=== PATIENT | female | born 1990 | race Caucasian/White ===

== ENCOUNTER 2019-05-27 07:45 | Day surgery (SDC) | payer BC ==
[~2019-05-27 07:45] MED LIST: Lactated Ringers 1,000 ML IV SCH; Sodium Chloride 0.9% 10 ML SDV IV PRN; Sodium Chloride 0.9% 10 ML Syringe FLUSH PRN; Sodium Chloride 0.9% 2.5 ML Syringe FLUSH PRN
[2019-05-27] MEDS ORDERED: ceFAZolin 2 GM in Premix Bag 1 BAG IV ONE (08:00)
[2019-05-27] MEDS ORDERED: Fluorescein 5 ML Vial ONE (08:18)
[2019-05-27] MEDS ORDERED: Bupivacaine 0.25% 10 ML SDV ONE (08:18)
[2019-05-27 08:45] LABS: BLOOD UREA NITROGEN,BUN 16 mg/dL (7.0-18.0); CARBON DIOXIDE,CO2 26.1 mmol/L (21.0-32.0); CHLORIDE,CL 106 mmol/L (98-107); GLUCOSE RANDOM 97 mg/dL (74-106); SODIUM,NA 142 mmol/L (136-145)
[2019-05-27] MEDS ORDERED: Scopolamine 1.5 MG Transdermal Patch TRDERM PRN (09:13)
--- NOTE | 2019-05-27 09:18 | PCM.PREANE ---
Preanesthetic Assessment - Anesthesia/Transfusion/Family Hx Anesthesia History: Prior Anesthesia Reaction (woke-up during surgery) Family History of Anesthesia Reaction: No Transfusion History: No Prior Transfusion(s) Intubation History: Unknown - Review of Systems General: No Symptoms Pulmonary: No Symptoms Cardiovascular: No Symptoms Gastrointestinal: No Symptoms Neurological: No Symptoms Other: Reports: None - Physical Assessment NPO Status Date: 05/26/19 NPO Status Time: 11:59 Vital Signs: Last Vital Signs Temp 35.9 C 05/27/19 07:55 Pulse 83 05/27/19 07:55 Resp 18 05/27/19 07:55 BP 134/84 05/27/19 07:55 Pulse Ox 99 05/27/19 07:55 Height: 5 ft 7 in Weight: 63.503 kg ASA Class: 2 Mental Status: Alert & Oriented x3 Airway Class: Mallampati = 1 Dentition: Reports: Normal Dentition, Broken Tooth/Teeth (2 small chips on upper front incisors) Thyro-Mental Finger Breadths: 3 Mouth Opening Finger Breadths: 3 ROM/Head Extension: Full Lungs: Clear to Auscultation, Normal Respiratory Effort Cardiovascular: Regular Rate, Regular Rhythm - Lab Values: Laboratory Last Values WBC 6.55 K/uL (4.0-11.0) 05/27/19 08:15 RBC 4.73 M/uL (4.30-5.90) 05/27/19 08:15 Hgb 14.6 g/dL (12.0-16.0) 05/27/19 08:15 Hct 44.5 % (36.0-46.0) 05/27/19 08:15 MCV 94.1 fL (80.0-98.0) 05/27/19 08:15 MCH 30.9 pg (27.0-32.0) 05/27/19 08:15 MCHC 32.8 g/dL (31.0-37.0) 05/27/19 08:15 RDW Std Deviation 45.8 fl (28.0-62.0) 05/27/19 08:15 RDW Coeff of Betty 13 % (11.0-15.0) 05/27/19 08:15 Plt Count 296 K/uL (150-400) 05/27/19 08:15 MPV 9.90 fL (7.40-12.00) 05/27/19 08:15 Nucleated RBC % 0.0 /100WBC 05/27/19 08:15 Nucleated RBCs # 0 K/uL 05/27/19 08:15 Sodium 142 mmol/L (136-145) 05/27/19 08:15 Potassium 4.0 mmol/L (3.5-5.1) 05/27/19 08:15 Chloride 106 mmol/L (98-107) 05/27/19 08:15 Carbon Dioxide 26.1 mmol/L (21.0-32.0) 05/27/19 08:15 BUN 16 mg/dL (7.0-18.0) 05/27/19 08:15 Creatinine 0.9 mg/dL (0.6-1.0) 05/27/19 08:15 Est Cr Clr Drug Dosing 89.69 mL/min 05/27/19 08:15 Estimated GFR (MDRD) > 60.0 ml/min 05/27/19 08:15 Glucose 97 mg/dL (74-106) 05/27/19 08:15 Calcium 8.5 mg/dL (8.5-10.1) 05/27/19 08:15 HCG, Qual NEGATIVE (NEG) 05/27/19 08:15 - Allergies Allergies/Adverse Reactions: Allergies Allergy/AdvReac Type Severity Reaction Status Date / Time antibiotics Allergy Nausea and Uncoded 05/23/19 10:26 Vomiting - Blood Blood Available: No - Anesthesia Plan Pre-Op Medication Ordered: None - Acknowledgements Anesthesia Type Planned: General Anesthesia Pt an Appropriate Candidate for the Planned Anesthesia: Yes Alternatives and Risks of Anesthesia Discussed w Pt/Guardian: Yes Pt/Guardian Understands and Agrees with Anesthesia Plan: Yes PreAnesthesia Questionnaire HEENT History: Reports: Other (See Below) Other HEENT History: 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 Cardiovascular History: Reports: Heart Murmur, Other (See Below) Other Cardiovascular History: recent ECHO done Respiratory History: Reports: Asthma Other Respiratory History: only uses inhaler if she gets bronchitis- has not used an inhaler for over a year and doesn't currently have one Gastrointestinal History: Reports: GERD Other Gastrointestinal History: takes Prilosec PRN Musculoskeletal History: Reports: Back Pain, Chronic, Other (See Below) Other Musculoskeletal History: chronic back pain and joint pain, has Estefani Damlos Syndrome Neurological History: Reports: Concussion, Other (See Below) Other Neuro History: hx of bulging disc at L4-5 Psychiatric History: Reports: Anxiety Dermatologic History: Reports: Eczema - Past Surgical History Head Surgeries/Procedures: Reports: None HEENT Surgical History: Reports: Oral Surgery Other HEENT Surgeries/Procedures: wisdom teeth GI Surgical History: Reports: Appendectomy Musculoskeletal Surgical History: Reports: Other (See Below) Other Musculoskeletal Surgeries/Procedures:: bilateral knee arthrotomys- has 2 screws in both knees- developed post op infection in right knee - SUBSTANCE USE Smoking Status *Q: Current Every Day Smoker (3/4 ppd) Tobacco Use Within Last Twelve Months: Cigarettes Recreational Drug Use History: No - HOME MEDS Home Medications: Home Meds Omeprazole 20 mg PO DAILY PRN 05/23/19 [History] - CURRENT (IN HOUSE) MEDS Current Meds: Current Medications Cefazolin Sodium/Dextrose 2 gm (/ Premix) 50 mls @ 100 mls/hr IV ONETIME ONE Stop: 05/27/19 08:29 Lactated Ringer's (Ringers, Lactated) 1,000 mls @ 500 mls/hr IV BOLUS BRIANNA Last Admin: 05/27/19 08:25 Dose: 500 mls/hr Scopolamine (Transderm-Scop) 1.5 mg TRDERM Q72H PRN PRN Reason: Nausea Sodium Chloride (Saline Flush) 10 ml FLUSH ASDIRECTED PRN PRN Reason: Keep Vein Open Sodium Chloride (Saline Flush) 2.5 ml FLUSH ASDIRECTED PRN PRN Reason: Keep Vein Open Sodium Chloride (Normal Saline) 10 ml IV ASDIRECTED PRN PRN Reason: IV Use Discontinued Medications Bupivacaine HCl (Sensorcaine-Mpf 0.25%) Confirm Administered Dose 20 ml .ROUTE .STK-MED ONE Stop: 05/27/19 08:19 Fluorescein Sodium (Ak-Fluor) Confirm Administered Dose 5 ml .ROUTE .STK-MED ONE Stop: 05/27/19 08:19
[2019-05-27] MEDS ORDERED: Propofol 200 MG/20 ML SDV ONE (09:53)
[2019-05-27] MEDS ORDERED: fentaNYL 250 MCG/5 ML SDV ONE (09:53)
[2019-05-27] MEDS ORDERED: Midazolam 1 MG/ML 2 ML SDV ONE (09:53)
[2019-05-27] MEDS ORDERED: Neostigmine Methylsulfate 1 MG/ML 5 ML Syringe ONE (09:56)
[2019-05-27] MEDS ORDERED: Phenylephrine/Normal Saline 100 MCG/ML 10 ML Syringe ONE (09:56)
[2019-05-27] MEDS ORDERED: ePHEDrine 50 MG/ML SDV ONE (09:56)
[2019-05-27] MEDS ORDERED: Rocuronium 100 MG/10 ML Syringe ONE (09:56)
[2019-05-27] MEDS ORDERED: Glycopyrrolate 0.2 MG/ML SDV ONE (09:56)
[2019-05-27] MEDS ORDERED: Sodium Chloride 0.9% 20 ML ONE (09:58)
[2019-05-27] MEDS ORDERED: Furosemide 40 MG/4 ML VIAL ONE (09:58)
[2019-05-27] MEDS ORDERED: Dexamethasone 4 MG/ML 5 ML MDV ONE (09:58)
[2019-05-27] MEDS ORDERED: Ondansetron 4 MG/2 ML SDV ONE (09:58)
[2019-05-27] MEDS ORDERED: 50% Dextrose in Water 50 ML Syringe IVPUSH PRN (10:43)
[2019-05-27] MEDS ORDERED: Albuterol 0.083% 2.5 MG/3 ML Neb Soln NEB PRN (10:43)
[2019-05-27] MEDS ORDERED: EPINEPHrine 1:10,000 1 MG/10 ML Syringe IVPUSH PRN (10:43)
[2019-05-27] MEDS ORDERED: Atropine 0.1 MG/ML 10 ML Syringe IVPUSH PRN ×2 (10:43)
[2019-05-27] MEDS ORDERED: Naloxone 0.4 MG/ML Syringe IVPUSH PRN (10:43)
[2019-05-27] MEDS ORDERED: fentaNYL 100 MCG/2 ML SDV ONE (12:27)
[2019-05-27] MEDS ORDERED: Acetaminophen/oxyCODONE 325-5 MG Tab PO PRN ×2 (13:21)
[2019-05-27] MEDS ORDERED: Ketorolac 30 MG/ML SDV IVPUSH PRN (13:21)
[2019-05-27] MEDS ORDERED: Ondansetron 4 MG/2 ML SDV IVPUSH PRN (13:21)
[2019-05-27] MEDS ORDERED: Ketorolac 30 MG/ML SDV IVPUSH ONE (13:21)
[2019-05-27] MEDS ORDERED: Promethazine 25 MG/ML SDV IM PRN (13:21)
[2019-05-27] MEDS ORDERED: Morphine 4 MG/ML Syringe IVPUSH PRN (13:21)
[2019-05-27] MEDS ORDERED: Metoclopramide 10 MG/2 ML SDV IVPUSH PRN (13:25)
[2019-05-27] MEDS ORDERED: Acetaminophen 500 MG Tab PO ONE (13:27)
[2019-05-27] MEDS ORDERED: Sodium Chloride 0.9% 1,000 ML IV SCH (13:30)
--- NOTE | 2019-05-27 13:38 | PCM.OPNOTE ---
- General Post-Op/Procedure Note Date of Surgery/Procedure: 05/27/19 Operative Procedure(s): Total laparoscopic Hysterectomy. Bilateral salphingectomy. Cytoscopy. Jackson culdoplasty Findings: Stage 2 endometriosis with ovaries adhered towards the midline in the posterior cul-de-sac Extensive endometriotic deposits in the uterosacral ligament Sparse endometriosis around pelvic peritoneum Normal sized uterus Normal tubes and ovaries Pre Op Diagnosis: Abnormal uterine bleeding. severe dysmenorrhea Post-Op Diagnosis: Endometriosis Anesthesia Technique: General ET Tube, General Mask Primary Surgeon: Vanesa Olivas Secondary Surgeon: Jarrod Ghotra Anesthesia Provider: Nico Larry Radi Pathology: Uterus , tubes and pelvic peritoneum Fluid Replacement, Intraop: 2,000 Output, Urine Amount: 375 EBL in mLs: 20 Complications: None Condition: Good
[2019-05-27] MEDS: fentaNYL 100 MCG/2 ML SDV IVPUSH PRN ×2 (13:43→13:50)
--- NOTE | 2019-05-27 14:02 | PCM.POSTAN ---
POST ANESTHESIA ASSESSMENT - MENTAL STATUS Mental Status: Alert, Oriented - VITAL SIGNS Vital Signs: Last Vital Signs Temp 35.9 C 05/27/19 13:16 Pulse 63 05/27/19 13:49 Resp 9 L 05/27/19 13:49 BP 111/69 05/27/19 13:49 Pulse Ox 96 05/27/19 13:49 - RESPIRATORY Respiratory Status: Respiratory Rate WNL, Airway Patent, O2 Saturation Stable - CARDIOVASCULAR CV Status: Pulse Rate WNL, Blood Pressure Stable - GASTROINTESTINAL GI Status: No Symptoms - PAIN Pain Score: 2 - POST OP HYDRATION Hydration Status: Adequate & Stable - OBSERVATIONS Free Text/Narrative:: no anesthesia problems
[2019-05-27] MEDS ORDERED: Ibuprofen 800 MG Tab PO ONE (20:00)
[2019-05-28 06:49] LABS: BLOOD UREA NITROGEN,BUN 7 mg/dL (7.0-18.0); CARBON DIOXIDE,CO2 26.9 mmol/L (21.0-32.0); CHLORIDE,CL 107 mmol/L (98-107); GLUCOSE RANDOM 91 mg/dL (74-106); POTASSIUM,K 3.8 mmol/L (3.5-5.1); SODIUM,NA 141 mmol/L (136-145)
--- NOTE | 2019-05-28 09:04 | PCM.SURGPN ---
- General Info Date of Service: 05/28/19 Date of Surgery/Procedure: 05/27/19 POD#: 1 Post-Op Diagnosis: Endometriosis Functional Status: Reports: Pain Controlled, Tolerating Diet, Ambulating, Urinating - Review of Systems General: Reports: No Symptoms HEENT: Reports: No Symptoms Pulmonary: Reports: No Symptoms Cardiovascular: Reports: No Symptoms Gastrointestinal: Reports: No Symptoms Genitourinary: Reports: No Symptoms Musculoskeletal: Reports: No Symptoms Skin: Reports: No Symptoms Neurological: Reports: No Symptoms Psychiatric: Reports: No Symptoms - Patient Data Vitals - Most Recent: Last Vital Signs Temp 36.3 C 05/28/19 07:15 Pulse 74 05/28/19 07:15 Resp 16 05/28/19 07:15 BP 111/49 L 05/28/19 07:15 Pulse Ox 95 05/28/19 07:15 Weight - Most Recent: 63.503 kg I&O - Last 24 Hours: Intake & Output 05/27/19 05/28/19 05/28/19 22:59 06:59 14:59 Intake Total 2400 2800 Output Total 1600 3000 Balance 800 -200 Lab Results Last 24 Hrs: Laboratory Results - last 24 hr 05/27/19 05/28/19 05/28/19 Range/Units 08:15 06:10 06:10 WBC 13.13 H (4.0-11.0) K/uL RBC 4.12 L (4.30-5.90) M/uL Hgb 12.8 (12.0-16.0) g/dL Hct 38.1 (36.0-46.0) % MCV 92.5 (80.0-98.0) fL MCH 31.1 (27.0-32.0) pg MCHC 33.6 (31.0-37.0) g/dL RDW Std Deviation 44.3 (28.0-62.0) fl RDW Coeff of Betty 13 (11.0-15.0) % Plt Count 280 (150-400) K/uL MPV 9.80 (7.40-12.00) fL Neut % (Auto) 79.0 (48.0-80.0) % Lymph % (Auto) 12.1 L (16.0-40.0) % [place] % (Auto) 8.5 (0.0-15.0) % Eos % (Auto) 0.2 (0.0-7.0) % Baso % (Auto) 0.2 (0.0-1.5) % Neut # (Auto) 10.4 H (1.4-5.7) K/uL Lymph # (Auto) 1.6 (0.6-2.4) K/uL [place] # (Auto) 1.1 H (0.0-0.8) K/uL Eos # (Auto) 0.0 (0.0-0.7) K/uL Baso # (Auto) 0.0 (0.0-0.1) K/uL Nucleated RBC % 0.0 /100WBC Nucleated RBCs # 0 K/uL Sodium 141 (136-145) mmol/L Potassium 3.8 (3.5-5.1) mmol/L Chloride 107 (98-107) mmol/L Carbon Dioxide 26.9 (21.0-32.0) mmol/L BUN 7 (7.0-18.0) mg/dL Creatinine 0.6 (0.6-1.0) mg/dL Est Cr Clr Drug Dosing 134.54 mL/min Estimated GFR (MDRD) > 60.0 ml/min Glucose 91 (74-106) mg/dL Calcium 8.4 L (8.5-10.1) mg/dL Blood Type O POSITIVE Antibody Screen NEGATIVE Med Orders - Current: Current Medications Albuterol (Proventil Neb Soln) 2.5 mg NEB ONETIME PRN PRN Reason: Wheezing Atropine Sulfate (Atropine 0.1 Mg/Ml) 1 mg IVPUSH ASDIRECTED PRN PRN Reason: Hypo-Perfusion Dextrose/Water (Dextrose 50% In Water) 50 ml IVPUSH ASDIRECTED PRN PRN Reason: Hypoglycemia Epinephrine HCl (Epinephrine 1:10,000) 1 mg IVPUSH ASDIRECTED PRN PRN Reason: ACLS Guidelines Fentanyl (Sublimaze) 50 mcg IVPUSH Q5M PRN PRN Reason: Pain Last Admin: 05/27/19 13:50 Dose: 50 mcg Lactated Ringer's (Ringers, Lactated) 1,000 mls @ 500 mls/hr IV BOLUS BRIANNA Last Admin: 05/27/19 08:25 Dose: 500 mls/hr Sodium Chloride (Normal Saline) 1,000 mls @ 125 mls/hr IV ASDIRECTED BRIANNA Last Admin: 05/27/19 14:36 Dose: 125 mls/hr Ketorolac Tromethamine (Toradol) 30 mg IVPUSH Q6H PRN PRN Reason: Pain (severe 7-10) Stop: 06/01/19 13:21 Metoclopramide HCl (Reglan) 10 mg IVPUSH Q8H PRN PRN Reason: Abdominal Pain Morphine Sulfate (Morphine) 4 mg IVPUSH Q2H PRN PRN Reason: Pain (severe 7-10) Naloxone HCl (Narcan) 0.1 mg IVPUSH ASDIRECTED PRN PRN Reason: Respiratory Depression Ondansetron HCl (Zofran) 4 mg IVPUSH Q6H PRN PRN Reason: Nausea/Vomiting Oxycodone/Acetaminophen (Percocet 325-5 Mg) 1 tab PO Q4H PRN PRN Reason: Pain (moderate 4-6) Last Admin: 05/28/19 04:01 Dose: 1 tab Oxycodone/Acetaminophen (Percocet 325-5 Mg) 2 tab PO Q4H PRN PRN Reason: Pain (moderate 4-6) Promethazine HCl (Phenergan) 25 mg IM Q6H PRN PRN Reason: Nausea/Vomiting Scopolamine (Transderm-Scop) 1.5 mg TRDERM Q72H PRN PRN Reason: Nausea Last Admin: 05/27/19 09:20 Dose: 1.5 mg Sodium Chloride (Saline Flush) 10 ml FLUSH ASDIRECTED PRN PRN Reason: Keep Vein Open Sodium Chloride (Saline Flush) 2.5 ml FLUSH ASDIRECTED PRN PRN Reason: Keep Vein Open Sodium Chloride (Normal Saline) 10 ml IV ASDIRECTED PRN PRN Reason: IV Use Discontinued Medications Acetaminophen (Tylenol Extra Strength) 1,000 mg PO ONETIME ONE Stop: 05/27/19 13:28 Last Admin: 05/27/19 14:35 Dose: 1,000 mg Atropine Sulfate (Atropine 0.1 Mg/Ml) 0.5 mg IVPUSH ASDIRECTED PRN PRN Reason: Hypo-perfusion Stop: 05/27/19 14:43 Bupivacaine HCl (Sensorcaine-Mpf 0.25%) Confirm Administered Dose 20 ml .ROUTE .STK-MED ONE Stop: 05/27/19 08:19 Dexamethasone (Dexamethasone) Confirm Administered Dose 20 mg .ROUTE .STK-MED ONE Stop: 05/27/19 09:59 Ephedrine Sulfate (Ephedrine Sulfate) Confirm Administered Dose 50 mg .ROUTE .STK-MED ONE Stop: 05/27/19 09:57 Fentanyl (Sublimaze) Confirm Administered Dose 250 mcg .ROUTE .STK-MED ONE Stop: 05/27/19 09:54 Fentanyl (Sublimaze) Confirm Administered Dose 100 mcg .ROUTE .STK-MED ONE Stop: 05/27/19 12:28 Fluorescein Sodium (Ak-Fluor) Confirm Administered Dose 5 ml .ROUTE .STK-MED ONE Stop: 05/27/19 08:19 Furosemide (Lasix) Confirm Administered Dose 40 mg .ROUTE .STK-MED ONE Stop: 05/27/19 09:59 Glycopyrrolate (Robinul) Confirm Administered Dose 0.6 mg .ROUTE .ST-MED ONE Stop: 05/27/19 09:57 Cefazolin Sodium/Dextrose 2 gm (/ Premix) 50 mls @ 100 mls/hr IV ONETIME ONE Stop: 05/27/19 08:29 Last Admin: 05/27/19 16:21 Dose: 100 mls/hr Sodium Chloride (Normal Saline) Confirm Administered Dose 20 mls @ as directed .ROUTE .ST-MED ONE Stop: 05/27/19 09:59 Cefazolin Sodium/Dextrose (Ancef) Confirm Administered Dose 100 mls @ as directed .ROUTE .STK-MED ONE Stop: 05/27/19 10:07 Ibuprofen (Motrin) 800 mg PO ONETIME ONE Stop: 05/27/19 20:01 Last Admin: 05/27/19 20:17 Dose: 800 mg Ketorolac Tromethamine (Toradol) 30 mg IVPUSH ONETIME ONE Stop: 05/27/19 13:22 Last Admin: 05/27/19 13:39 Dose: 30 mg Midazolam HCl (Versed 1 Mg/Ml) Confirm Administered Dose 2 mg .ROUTE .STK-MED ONE Stop: 05/27/19 09:54 Neostigmine Methylsulfate (Neostigmine) Confirm Administered Dose 5 mg .ROUTE .STK-MED ONE Stop: 05/27/19 09:57 Ondansetron HCl (Zofran) Confirm Administered Dose 4 mg .ROUTE .STK-MED ONE Stop: 05/27/19 09:59 Phenylephrine HCl (Phenylephrine In Ns 100 Mcg/Ml) Confirm Administered Dose 1 mg .ROUTE .STK-MED ONE Stop: 05/27/19 09:57 Propofol (Diprivan 20 Ml) Confirm Administered Dose 200 mg .ROUTE .STK-MED ONE Stop: 05/27/19 09:54 Rocuronium [place] (Zemuron) Confirm Administered Dose 100 mg .ROUTE .STK-MED ONE Stop: 05/27/19 09:57 Succinylcholine Chloride (Succinylcholine Chloride) Confirm Administered Dose 200 mg .ROUTE .STK-MED ONE Stop: 05/27/19 09:57 - Exam Wound/Incisions: Dressing Dry and Intact General: Alert HEENT: Pupils Equal Lungs: Clear to Auscultation Cardiovascular: Regular Rate, Regular Rhythm GI/Abdominal Exam: Normal Bowel Sounds, Soft (Laparoscopic incision c/d/i) Extremities: Normal Inspection Neurological: No New Focal Deficit Psy/Mental Status: Alert Sepsis Event Note - Evaluation Sepsis Screening Result: No Definite Risk - Focused Exam Vital Signs: Vital Signs Temp Pulse Resp BP Pulse Ox 05/28/19 07:15 36.3 C 74 16 111/49 L 95 05/28/19 04:00 36.1 C 66 17 118/60 100 05/28/19 00:37 36.8 C 80 16 114/61 100 Date Exam was Performed: 05/28/19 Time Exam was Performed: 09:01 - Problem List & Annotations (1) Endometriosis SNOMED Code(s): 728732404 Code(s): N80.9 - ENDOMETRIOSIS, UNSPECIFIED Status: Acute Current Visit: Yes (2) S/P hysterectomy SNOMED Code(s): 614546855, 080795147, 903898820 Code(s): Z90.710 - ACQUIRED ABSENCE OF BOTH CERVIX AND UTERUS Status: Acute Current Visit: Yes - Problem List Review Problem List Initiated/Reviewed/Updated: Yes - My Orders Last 24 Hours: Active Orders 24 hr Category Date Time Status Antiembolic Devices [RC] PER UNIT ROUTINE Care 05/27/19 13:22 Active Notify Provider Intake and Out [RC] ASDIRECTED Care 05/27/19 13:21 Active Notify Provider Vital Signs [RC] ASDIRECTED Care 05/27/19 13:21 Active Oxygen Therapy [RC] ASDIRECTED Care 05/27/19 13:21 Active RT Aerosol Therapy [RC] ASDIRECTED Care 05/27/19 10:43 Active RT Incentive Spirometry [RC] Q2HWA Care 05/27/19 13:21 Active Up With Assistance [RC] PER UNIT ROUTINE Care 05/27/19 13:21 Active Up ad Ilda [RC] PER UNIT ROUTINE Care 05/27/19 13:21 Active Urinary Catheter Removal [RC] Per Unit Routine Care 05/27/19 13:21 Active Vital Signs [RC] Q4H Care 05/27/19 13:21 Active Advance Diet Instructions [DIET] Diet 05/27/19 Dinner Active Regular Diet [DIET] Diet 05/28/19 Breakfast Active Acetaminophen/oxyCODONE [Percocet 325-5 MG] Med 05/27/19 13:21 Active 1 tab PO Q4H PRN Acetaminophen/oxyCODONE [Percocet 325-5 MG] Med 05/27/19 13:21 Active 2 tab PO Q4H PRN Albuterol [Proventil Neb Soln] Med 05/27/19 10:43 Active 2.5 mg NEB ONETIME PRN Atropine [Atropine 0.1 MG/ML] Med 05/27/19 10:43 Active 1 mg IVPUSH ASDIRECTED PRN Dextrose 50% in Water Med 05/27/19 10:43 Active 50 ml IVPUSH ASDIRECTED PRN EPINEPHrine [EPINEPHrine 1:10,000] Med 05/27/19 10:43 Active 1 mg IVPUSH ASDIRECTED PRN Ketorolac [Toradol] Med 05/27/19 13:21 Active 30 mg IVPUSH Q6H PRN Metoclopramide [Reglan] Med 05/27/19 13:25 Active 10 mg IVPUSH Q8H PRN Morphine Med 05/27/19 13:21 Active 4 mg IVPUSH Q2H PRN Naloxone [Narcan] Med 05/27/19 10:43 Active 0.1 mg IVPUSH ASDIRECTED PRN Ondansetron [Zofran] Med 05/27/19 13:21 Active 4 mg IVPUSH Q6H PRN Promethazine [Phenergan] Med 05/27/19 13:21 Active 25 mg IM Q6H PRN Scopolamine [Transderm-Scop] Med 05/27/19 09:13 Active 1.5 mg TRDERM Q72H PRN Sodium Chloride 0.9% [Normal Saline] 1,000 ml Med 05/27/19 13:30 Active IV ASDIRECTED fentaNYL [Sublimaze] Med 05/27/19 10:43 Active 50 mcg IVPUSH Q5M PRN Peripheral IV Discontinue [OM.PC] Routine Oth 05/27/19 13:21 Ordered Sequential Compression Device [OM.PC] Per Unit Routine Oth 05/27/19 13:21 Ordered Resuscitation Status Routine Resus Stat 05/27/19 13:21 Ordered Medication Orders Albuterol (Proventil Neb Soln) 2.5 mg NEB ONETIME PRN PRN Reason: Wheezing Atropine Sulfate (Atropine 0.1 Mg/Ml) 1 mg IVPUSH ASDIRECTED PRN PRN Reason: Hypo-Perfusion Dextrose/Water (Dextrose 50% In Water) 50 ml IVPUSH ASDIRECTED PRN PRN Reason: Hypoglycemia Epinephrine HCl (Epinephrine 1:10,000) 1 mg IVPUSH ASDIRECTED PRN PRN Reason: ACLS Guidelines Fentanyl (Sublimaze) 50 mcg IVPUSH Q5M PRN PRN Reason: Pain Last Admin: 05/27/19 13:50 Dose: 50 mcg Admin: 05/27/19 13:43 Dose: 50 mcg Lactated Ringer's (Ringers, Lactated) 1,000 mls @ 500 mls/hr IV BOLUS [facility] Last Admin: 05/27/19 08:25 Dose: 500 mls/hr Sodium Chloride (Normal Saline) 1,000 mls @ 125 mls/hr IV ASDIRECTED [facility] Last Admin: 05/27/19 14:36 Dose: 125 mls/hr Ketorolac Tromethamine (Toradol) 30 mg IVPUSH Q6H PRN PRN Reason: Pain (severe 7-10) Stop: 06/01/19 13:21 Metoclopramide HCl (Reglan) 10 mg IVPUSH Q8H PRN PRN Reason: Abdominal Pain Morphine Sulfate (Morphine) 4 mg IVPUSH Q2H PRN PRN Reason: Pain (severe 7-10) Naloxone HCl (Narcan) 0.1 mg IVPUSH ASDIRECTED PRN PRN Reason: Respiratory Depression Ondansetron HCl (Zofran) 4 mg IVPUSH Q6H PRN PRN Reason: Nausea/Vomiting Oxycodone/Acetaminophen (Percocet 325-5 Mg) 1 tab PO Q4H PRN PRN Reason: Pain (moderate 4-6) Last Admin: 05/28/19 04:01 Dose: 1 tab Oxycodone/Acetaminophen (Percocet 325-5 Mg) 2 tab PO Q4H PRN PRN Reason: Pain (moderate 4-6) Promethazine HCl (Phenergan) 25 mg IM Q6H PRN PRN Reason: Nausea/Vomiting Scopolamine (Transderm-Scop) 1.5 mg TRDERM Q72H PRN PRN Reason: Nausea Last Admin: 05/27/19 09:20 Dose: 1.5 mg Sodium Chloride (Saline Flush) 10 ml FLUSH ASDIRECTED PRN PRN Reason: Keep Vein Open Sodium Chloride (Saline Flush) 2.5 ml FLUSH ASDIRECTED PRN PRN Reason: Keep Vein Open Sodium Chloride (Normal Saline) 10 ml IV ASDIRECTED PRN PRN Reason: IV Use - Assessment Assessment (Free Text/Narrative):: 28yo P0 s/p TLH/BS POD 1 she is ambulating voiding and tolerating regular diet Informed of diagnosis of endometriosis and need for estrogen suppression - Plan Plan (Free Text/Narrative):: Discharge home
--- NOTE | 2019-05-28 16:24 | OR ---
SURGEON: ISIS FREEDMAN DATE OF PROCEDURE:05/27/2019 PREOPERATIVE DIAGNOSES: A 28-year-old para 0 with abnormal uterine bleeding and chronic pelvic pain. POSTOPERATIVE DIAGNOSES: Abnormal uterine bleeding, endometriosis. PROCEDURES: Total laparoscopic hysterectomy, bilateral salpingectomy, cystoscopy, Hardy culdoplasty. IV FLUIDS: 2000. ESTIMATED BLOOD LOSS: 20. URINE OUTPUT: 375. NOTES AND FINDINGS: Normal-sized retroverted uterus. Laparoscopy showed adhesions of the ovary in the cul-de-sac. Dense endometriotic fibrotic spots noted in the uterosacral ligament, also endometriotic deposit noted in the pelvic peritoneum and also anterior bladder wall. Biopsies were taken. PATHOLOGY: Uterus, tubes, and peritoneal biopsies. COMPLICATIONS: None. BRIEF HISTORY: She is a 28-year-old who came to my clinic complaining of pelvic pain and abnormal uterine bleeding. The patient was given option for conservative management. She said she had used control in the past and it used to affect her mood. She was also concerned about having an IUD due to Elher danlos syndrome. She also said she has a history of chronic pelvic pain. The patient because of her age, I informed her that there is a very high likelihood of regret. She states that she has been with her partner for a long time, he has step kids, and she is not interested in fertility. I sent the patient for psychological evaluation, which she was deemed fit to make such decisions. The patient was explained the risks, benefits, and alternatives, and she decided to proceed. DESCRIPTION OF PROCEDURE: The patient was taken to the operating room where general anesthesia was performed without difficulty. She was prepared and draped in the dorsal lithotomy position with Mitchell stirrups. A Sanchez catheter was placed. The speculum was used to expose the cervix. The anterior lip of the cervix was grasped. The cervix was dilated to accommodate the Advincula and the uterus was sounded to about 7 cm. The Advincula was placed without difficulty, then attention was placed to the abdomen. A subumbilical 5 mm incision was made after injecting 0.25% Marcaine. The abdomen was entered via direct entry. Entry was confirmed with intraabdominal pressure of 5 mmHg. CO2 pneumoperitoneum was then obtained to 15mmHg. The patient was placed in the Trendelenburg position. The right and left lower quadrant ports were placed in 5 mm incision made 2 fingerbreadths superior and medial to the anterior and superior iliac spine. The bilateral ureters were observed. The colon was gently retracted out of the posterior cul-de-sac. The adhesions between the sigmoid colon and the pelvic peritoneum were lysed. The fallopian tube was grasped by the zoning assistant. With the aid of the LigaSure device, it was sequentially cut and coagulated, from the ovary, the peritoneum, and ligament. The tube was all the way to the cornua of the uterus. The left tube was detached in the same fashion. The round ligament was then transected two-third from the uterus and one-third from the pelvic sidewall. The anterior and posterior broad ligaments were to expose the uterine artery. The uterine was skeletonized. The bladder flap was created with the aid of the Harmonic scalpel. The uterine vessels were then coagulated at the cervicovaginal junction. The Advincula cup was then entered circumferentially and a circumferential incision was made between the cervix and the vagina with the Harmonic scalpel device. This was done on the right and the left with circumferential incision around the colpotomy cup. The uterus was detached. Attention was then paid to the perineum where the uterus was removed. The uterosacral was identified. The Hardy stitch was then run from the posterior vaginal wall to the uterosacral over the pelvic peritoneum and the cul-de-sac to the other uterosacral ligament. Then, the colpotomy cup was closed anterior-posterior with interlocking stitches of 0 Polysorb. IV fluorescein was given. The cystoscopy was then performed and bilateral ureteral jets were observed and the bladder was noted to be intact. Then, a sponge stick was placed in the vagina. Attention was placed to the abdomen. The incision was inspected and was noted to be hemostatic. The pneumoperitoneum was reduced to 5 mmHg and also noted to be hemostatic. The gas was deflated. All trocars were removed. The incision was closed with 3-0 Monocryl. All instrument and pad counts were correct x2. The patient tolerated the procedure well and was taken to the recovery room in stable condition. TAMIKA REICH /[id number] NANCY
== END 2019-05-28 09:30 | disposition home or self-care (01) ==
LOC: MW.SDS 07:45 → MW.MS 13:27 → MW.SDS 05-28 09:30
PROVIDERS: ATTEND Obstetrics & Gynecology
DX: N80.0 Endometriosis of uterus (principal); N80.3 Endometriosis of pelvic peritoneum; N80.8 Other endometriosis; N73.6 Female pelvic peritoneal adhesions (postinfective); Q79.60 Ehlers-Danlos syndrome, unspecified; K21.9 Gastro-esophageal reflux disease without esophagitis; F41.9 Anxiety disorder, unspecified; J45.909 Unspecified asthma, uncomplicated; F17.210 Nicotine dependence, cigarettes, uncomplicated; Z88.1 Allergy status to other antibiotic agents; Z79.899 Other long term (current) drug therapy
CPT/HCPCS: 36415; 58571; 80048; 84703; 85025; 85027; 86850; 86900; 86901; A9270; J0330; J0690; J1100; J1885; J1940; J2250; J2370; J2405; J2704; J3010; J3490; J7030; J7120